=== PATIENT | male | born 1995 | race Two or more races ===

== ENCOUNTER → 2024-06-11 22:19 | Emergency (ER) | payer BC, SELFPAY ==
[2024-06-11 21:04] VITALS: BMI 30.7
[2024-06-11 21:47] VITALS: BP 147/86; PULSE 87; RESP 18; TEMP 36.9; O2SAT 99
--- NOTE | 2024-06-11 22:52 | PD.EDUPEX ---
Upper Extremity Injury RME/HPI General Chief Complaint: Extremity Injury, Upper Stated Complaint: RIGHT UPPER ARM PAIN Time Seen by Provider: 06/11/24 22:01 Arrival date/time: 06/11/23 21:03 28M with no significant PMH presents to ED with R tripep area pain after he was lifting weight and heard a tear/pop. Limitations: no limitations Related Data Allergies Allergy/AdvReac Type Severity Reaction Status Date / Time No Known Allergies Allergy Verified 06/11/24 21:06 Review of Systems Review of Systems Systems Reviewed: All systems reviewed, normal except as documented Constitutional Constitutional: Reports system reviewed and no additional complaints, except as documented, Denies fever(s) and Denies headache(s) ENT Ears, Nose, Mouth, and Throat: Denies disequilibrium and Denies headache(s) Cardiovascular Cardiovascular: Reports system reviewed and no additional complaints, except as documented, Denies chest pain and Denies dyspnea Respiratory Respiratory: Reports system reviewed and no additional complaints, except as documented, Denies cough and Denies dyspnea Gastrointestinal Gastrointestinal: Reports system reviewed and no additional complaints, except as documented, Denies abdominal pain, Denies nausea and Denies vomiting Musculoskeletal Musculoskeletal: Reports as per HPI and Reports other (muscle pain) Neurologic Neurologic: Reports system reviewed and no additional complaints, except as documented, Denies confusion, Denies disequilibrium and Denies headache(s) Psychiatric Psychiatric: Denies confusion Past Medical History Social History SMOKING STATUS: Never smoker ED Exam General Limitations: Present no limitations General appearance: Present alert and in no apparent distress Head Head exam: Present atraumatic Eye Eye exam: Present normal appearance, PERRL and EOMI ENT ENT exam: Present normal exam, normal oropharynx and mucous membranes moist Neck Neck exam: Present normal inspection, full ROM and trachea midline Chest Chest inspection: Present normal inspection and symmetric chest wall rise Respiratory Respiratory exam: Present normal lung sounds bilaterally Cardiovascular Cardiovascular exam: Present regular rate, normal rhythm and normal heart sounds Abdominal Exam Abdominal exam: Present soft and normal bowel sounds Extremities Exam Extremities exam: Present full ROM Expanded Upper Extremity Exam Arm exam: Present full ROM, tenderness and swelling (R mass near elbow) Back Exam Back exam: Present normal inspection and full ROM Neurological Exam Neurological exam: Present alert, oriented X3 and CN II-XII intact Psychiatric Psychiatric exam: Present normal affect and normal mood Skin Skin exam: Present warm, dry, intact and normal color Course Quality Measures none Orders Category Date Time Status sling [Splint / Immobilizer] STAT Care 06/11/24 22:02 Completed Vital Signs Vital signs: Vital Signs Temperature 98.5 F 06/11/24 21:47 Pulse Rate 87 06/11/24 21:47 Respiratory Rate 18 06/11/24 21:47 Blood Pressure 147/86 H 06/11/24 21:47 Pulse Oximetry (%) 99 06/11/24 21:47 Oxygen Delivery Method Room Air 06/11/24 21:47 O2 at 99% on RA and WNLs Extremity Injury MDM Narrative MDM Narrative:: 28M with no significant PMH presents to ED with R tripep area pain after he was lifting weight and heard a tear/pop. Physical exam reveals R mobile mass near R upper elbow. ROM intact, but cannot feel tricep muscle as much compared to other side. Patient is afebrile, calm, and alert. Likely partially torn tricep muscle. Given sling and credit support counselor. Patient data External records reviewed:: None Clinical information provided by:: patient Social determinants that could affect healthcare access:: none Patient has the following chronic illnesses:: none How is presenting disease/condition affected by chronic disease/condition?: no chronic disease Evaluation data The following diagnostics were reviewed and interpreted by me:: other (specify) (none) Lab and/or radiology exams considered but not ordered:: not ordered Interpretation Summary: n/a Medications / Prescriptions Medications or Prescriptions considered but not ordered:: not ordered Medication administrations:: n/a Consultations Consultation(s) initiated? (list below): No Diagnosis Upper Extremity Injury Differential Diagnosis: sprain and strain of wrist, fracture of wrist, finger sprain, dislocation of finger, Colles' fracture, fracture of hand, dislocation of shoulder, fracture of humerus, fracture of clavicle and other (torn muscle) Most likely diagnosis given after review of the tests above:: torn muscle Admission Indicated Admission indicated?: not indicated Admission Request Was there a request for admission?: No Disposition Plan Disposition Plan: Discharge Discharge Attestation Discharge Attestation: The patient and all family members were given an opportunity to ask questions and understood the discharge instructions. Discharge instructions specifically effects, indications for sooner follow up or return to the emergency department, and the expected course of current diagnosis. Patient condition: Stable Discharge Plan Plan Patient Disposition: HOME (Self Care) Disposition Comment: Stable Problem List Clinical Impression: Torn muscle Patient/Caregiver Discharge Instructions Education Materials: ED Myalgias Additional Instructions: Please follow-up with PCP within 24-48 hours and return immediately if symptoms worsen. If problem persists, recommend outpatient PT and/or MRI follow-up. In the meantime, rest, use ice/heat, and/or compression. Print Language: Yakut Stand Alone Forms: Patient Portal Info Letter PA/LITHOGRAPHER APPRENTICE Supervising Physician PA/LITHOGRAPHER APPRENTICE Supervising Physician: Dr. Sheldon
== END | disposition home or self-care (01) ==
LOC: SERX 22:14
PROVIDERS: Emergency Provider Emergency Medicine
DX: S46.911A Strain of unspecified muscle, fascia and tendon at shoulder and upper arm level, right arm, initial encounter (principal); X50.0XXA Overexertion from strenuous movement or load, initial encounter; Y93.B9 Activity, other involving muscle strengthening exercises
CPT/HCPCS: 99281

== ENCOUNTER → 2024-07-08 | Outpatient (CLI) | payer BC, SELFPAY ==
--- NOTE | 2024-07-08 14:30 | XR_ITS ---
Examination: MRI right humerus, without contrast Date and time of exam: July 08, 2024 1505 hours INDICATIONS: Lifting weight injury June 11, 2024, pain in the posterior arm Technique: Multiple axial sagittal and coronal images of the right humerus have been obtained with the Siemens high-resolution 1.5 Anai MRI scanner. Images obtained include T2-weighted fat-suppressed sagittal sections, TR 3500, TE 46, T2 weighted coronal fat suppressed images, TR 3050, TE 84, T2-weighted transverse fat suppressed images, TR 3260, TE 63, proton density transverse images, TR 4720 TE 46, and T1 weighted coronal images, TR 560, TE 13. Findings: Adequate marrow signal humeral head neck and shaft The images do not include the entire distal humerus and no significant quality images of the elbow and triceps insertion No retraction of the biceps tendon No cortical bone destruction No endosteal scalloping No muscle hematoma IMPRESSION: Intact humerus with no soft tissue hematoma Recommend follow-up MRI elbow to best assess integrity of the triceps tendon as well as the long head of the biceps insertion into the radial tuberosity
== END | disposition home or self-care (01) ==
LOC: SMRI 07-09 09:53
DX: S46.391A Other injury of muscle, fascia and tendon of triceps, right arm, initial encounter (principal); X58.XXXA Exposure to other specified factors, initial encounter
CPT/HCPCS: 73218